=== PATIENT | male | born 1990 | race African-American/Black ===

== ENCOUNTER 2020-12-29 07:06 | Emergency (ER) | payer OTHER ==
[~2020-12-29] VITALS: Ht 172.7 cm; Wt 133.8 kg
[2020-12-29 07:10] VITALS: BP 152/92
[2020-12-29] MEDS ORDERED: TORADOL IM STA (07:42)
--- NOTE | 2020-12-29 07:48 | ER.PDOC ---
General Chief Complaint: Earache Stated Complaint: EAR ACHE Time seen by MD: 07:46 Source: patient Exam Limitations: no limitations History of Present Illness Initial Comments Right earache for 3 days. No fever or chills. No ear discharge. Timing/Duration: gradual Severity: moderate Associated Symptoms: sharp earache Allergies: Coded Allergies: No Known Allergies (Unverified , 12/29/20) Past Medical History Medical History: no pertinent history Surgical History: no surgical history Family History Significant Family History: no pertinent family hx Social History Smoking: non-smoker Alcohol Use: rarely Drug Use: none Constitutional: no symptoms reported Ears: see HPI Respiratory: no symptoms reported Cardiovascular: no symptoms reported Gastrointestinal: no symptoms reported Musculoskeletal: no symptoms reported All Other Systems: Reviewed and Negative Physical Exam General Appearance: alert, no distress Ears: auricle, external. canal nml TM's: erythema (R( Mouth/Throat: lips/gums nml, pharynx nml Nose: nml inspection Head/Neck: atraumatic, neck nml inspection Eyes: eyes nml inspection, PERRL, no nystagmus Resp/CVS: no resp distress, lungs clear, heart sounds nml, reg. rate & rhythm Abdomen: non-tender, no organomegaly Skin Exam: Normal Color, Warm/Dry NEURO/PSYCH: oriented X3, mood/effect nml Results/Orders Results/Orders Orders - KEYSHAWN TELLO MD Ketorolac Tromethamine (Toradol) (12/29/20 07:42) Vital Signs Date Time Temp Pulse Resp B/P (MAP) Pulse Ox O2 Delivery O2 Flow Rate FiO2 12/29/20 07:10 98.2 63 18 12/29/20 07:10 98.2 63 18 152/92 (112) 94 Room Air 12/29/20 07:10 98.2 63 18 94 ER DEPART Departure Time of Disposition: 07:47 Disposition: 01 HOME / SELF CARE / HOMELESS Impression: Primary Impression: Otitis media Qualified Codes: H66.90 - Otitis media, unspecified, unspecified ear Condition: Stable Referrals: PCP,UNKNOWN (PCP) PRIMARY CARE PROVIDER Additional Instructions: Amoxil Cortisporin otic Ibuprofen 800mg PO TID PRN pain Follow-up with your PCP in 1 week Return to ED if worsening or concerns Duration or Time Spent with Pa: 10 min KEYSHAWN TELLO MD Dec 29, 2020 07:48
[2020-12-29] MEDS ORDERED: TORADOL ONE (07:50)
== END 2020-12-29 08:10 | disposition home or self-care (01) ==
LOC: ER 07:06
DX: H66.91 Otitis media, unspecified, right ear (principal)
CPT/HCPCS: 96372; 99283; J1885